=== PATIENT | male | born 1975 ===

== ENCOUNTER 2016-07-07 15:03 | Emergency (ER) | payer SELFPAY ==
[2016-07-07 15:03] VITALS: BMI 39.3
[2016-07-07 15:14] VITALS: PULSE 66; RESP 16; TEMP 97.7; O2SAT 100
--- NOTE | 2016-07-07 15:29 | ED PDOC ---
HPI:Nausea, Vomiting, Diarrhea Time Seen by Provider: 07/07/16 15:15 Chief Complaint (Nursing): GI Problem Chief Complaint (Provider): Vomiting History Per: Patient History/Exam Limitations: no limitations Onset/Duration Of Symptoms: Days (x3) Current Symptoms Are (Timing): Still Present Associated Symptoms: Fever (subjective, this morning), Diarrhea (3 days ago, none since). denies: Nausea, Urinary Symptoms (no dysuria/hematuria), Other ( no abdominal pain) Last Bowel Movement: Today (1 hour ago, normal) Additional Complaint(s): Marcus Walsh is a 40 year old male, with no pertinent past medical history, who presents to the ED on 07/07/16 for the evaluation of vomiting which he has experienced "all day" over the past 3 days. Associated subjective fever also reported as of this morning in addition to some diarrhea, which was only present day of symptom onset and has since resolved. Denies nausea, abdominal pain, dysuria or hematuria. Last bowel movement was as of 1 hour ago, reportedly normal. Of note, patient states that he has experienced a similar array of symptoms approximately 4 months ago, at which time he had been evaluated by a GI specialist via endoscopy; the results of which were reportedly normal. Unable to remember name of specialist. PMD: [place], [place] Past Medical History Reviewed: Historical Data, Nursing Documentation, Vital Signs Vital Signs: Last Vital Signs Temp 97.7 F 07/07/16 15:10 Pulse 66 07/07/16 15:10 Resp 16 07/07/16 15:10 BP 152/99 H 07/07/16 15:10 Pulse Ox 100 07/07/16 15:10 - Medical History PMH: No Chronic Diseases - Surgical History Surgical History: Endoscopy - Family History Family History: States: Hypertension - Social History Current smoker - smoking cessation education provided: Yes (light (<10 cigarettes/day)) Alcohol: None (patient denies on interview) Drugs: Cannabis - Home Medications Home Medications: Ambulatory Orders Medication Instructions Recorded Ondansetron ODT [Zofran ODT] 4 mg PO Q8H PRN #20 odt 07/07/16 - Allergies Allergies/Adverse Reactions: Allergies Allergy/AdvReac Type Severity Reaction Status Date / Time No Known Allergies Allergy Verified 07/07/16 15:10 Review of Systems ROS Statement: Except As Marked, All Systems Reviewed And Found Negative Constitutional: Positive for: Fever (subjective) Gastrointestinal: Positive for: Vomiting (multiple episodes, "liquid"), Diarrhea (3 days ago, since resolved). Negative for: Nausea, Abdominal Pain Genitourinary Male: Negative for: Dysuria, Hematuria Physical Exam - Reviewed Nursing Documentation Reviewed: Yes Vital Signs Reviewed: Yes - Physical Exam Appears: Positive for: Non-toxic, No Acute Distress Head Exam: Positive for: ATRAUMATIC, NORMOCEPHALIC Skin: Positive for: Normal Color, Warm, Dry ENT: Positive for: Normal ENT Inspection Cardiovascular/Chest: Positive for: Regular Rate, Rhythm. Negative for: Murmur Respiratory: Positive for: Normal Breath Sounds. Negative for: Respiratory Distress Gastrointestinal/Abdominal: Positive for: Normal Exam, Soft. Negative for: Tenderness, Mass, Guarding, Rebound Back: Positive for: Normal Inspection Neurologic/Psych: Positive for: Alert, Oriented - Laboratory Results Result Diagrams: 07/07/16 15:44 07/07/16 15:44 - ECG O2 Sat by Pulse Oximetry: 100 (RA) Pulse Ox Interpretation: Normal - Progress ED Course And Treament: Pt feels better, wants to go home. Explained to patient need for comprehensive examination for cause of cyclical vomiting. States he will follow-up with his PMD. Re-evaluation Time: 17:18 Condition: Improved Medical Decision Making Medical Decision Makin:15 Initial Impression: vomiting Differential diagnoses include but are not limited to gastritis, cholelithiasis/ cysitis Initial Plan: * Labs * Lipase * Udip * Urinalysis * IV NS 1000ml at 1000mls/hr * Pepcid 20mg IVP * Zofran 4mg IVP * Reevaluation Scribe Attestation: Documented by Sana Durham, acting as a scribe for Kelly Anderson MD. Provider Scribe Attestation: All medical record entries made by the Cindy were at my direction and personally dictated by me. I have reviewed the chart and agree that the record accurately reflects my personal performance of the history, physical exam, medical decision making, and the department course for this patient. I have also personally directed, reviewed, and agree with the discharge instructions and disposition. Disposition - Clinical Impression Clinical Impression: Vomiting in adult - Patient ED Disposition Is Patient to be Admitted: No - Disposition Disposition: Routine/Home Disposition Time: 17:18 Condition: IMPROVED Additional Instructions: FOLLOW-UP WITH YOUR STORE SHOPPER FOR REEVALUATION. Prescriptions: Ondansetron ODT [Zofran ODT] 4 mg PO Q8H PRN #20 odt PRN Reason: Nausea/Vomiting Instructions: Acute Nausea and Vomiting (ED)
[2016-07-07] MEDS: Sodium Chloride 0.9% 1,000 ML IV STA (15:39)
[2016-07-07 16:16] LABS: ALB/GLOB RATIO 1.2 (1.0-2.1); ALKALINE PHOSPHATASE 81 U/L (38-126); ALT/SGPT 29 U/L (21-72); AST/SGOT 24 U/L (17-59); BILIRUBIN,TOTAL 1.1 mg/dl (0.2-1.3); BLOOD UREA NITROGEN 11 mg/dl (9-20); CALCIUM 9.2 mg/dL (8.4-10.2); CARBON DIOXIDE 28 mmol/L (22-30); CHLORIDE 99 mmol/L (98-107); GFR AFRICAN-AMERICAN > 60; GLUCOSE,RANDOM 159 mg/dL (75-110); LIPASE 142 U/L (23-300); POTASSIUM 3.6 MMOL/L (3.6-5.0); SODIUM 144 mmol/l (132-148); TOTAL PROTEIN 7.5 G/DL (6.3-8.2)
[2016-07-07 16:27] LABS: BASO % 0.3 % (0.0-2.0); EOS % 0.3 % (0.0-4.0); HEMATOCRIT 51.3 % (35.0-51.0); LYMPH # 1.7 K/uL (1.0-4.3); LYMPH % 14.8 % (20.0-40.0); MEAN CELL VOLUME 92.4 fl (80.0-94.0); MEAN CORPUSCULAR HEMOGLOBIN 31.5 pg (27.0-31.0); MEAN CORPUSCULAR HGB CONC 34.1 g/dL (33.0-37.0); MEAN PLATELET VOLUME 8.4 fl (7.2-11.7); MONO # 0.5 K/uL (0.0-0.8); MONO % 4.4 % (0.0-10.0); NEUT # 9.2 K/uL (1.8-7.0); NEUT % 80.2 % (50.0-75.0); RED CELL DISTRIBUTION WIDTH 13.2 % (11.5-14.5); WHITE BLOOD COUNT 11.5 K/uL (4.8-10.8)
[2016-07-07 17:33] VITALS: BP 148/87
[2016-07-07 18:33] LABS: RBC URINE 2 /hpf (0-3); URINE BACTERIA RARE (<OCC); URINE BILIRUBIN NEGATIVE (NEGATIVE); URINE BLOOD NEGATIVE (NEGATIVE); URINE COLOR YELLOW (YELLOW); URINE GLUCOSE (UA) NEG (Normal); URINE KETONE 20 mg/dL (NEGATIVE); URINE LEUKOCYTE ESTERASE NEG Leu/uL (Negative); URINE PROTEIN 30 mg/dL (NEGATIVE); WBC URINE 1 /hpf (0-5)
== END 2016-07-07 17:32 | disposition home or self-care (01) ==
LOC: H.ER 15:03
DX: R11.2 Nausea with vomiting, unspecified (principal); R19.7 Diarrhea, unspecified; F17.210 Nicotine dependence, cigarettes, uncomplicated
CPT/HCPCS: 80053; 81003; 83690; 85025; 96361; 96374; 96375; 99283; J2405; J7040

== ENCOUNTER 2017-05-07 00:23 | Emergency (ER) | payer SELFPAY ==
[2017-05-07 00:23] VITALS: BMI 39.3
[2017-05-07 00:53] VITALS: BP 186/108; PULSE 93; RESP 18; TEMP 99.6; O2SAT 98
[2017-05-07] MEDS ORDERED: Sodium Chloride 0.9% 1,000 ML IV STA (01:11)
[2017-05-07] MEDS ORDERED: Lactated Ringer's 1,000 ML IV SCH (01:30)
[2017-05-07 01:34] LABS: BASO % 0.2 % (0.0-2.0); EOS % 0.1 % (0.0-4.0); HEMOGLOBIN 17.8 g/dL (12.0-18.0); LYMPH # 1.4 K/uL (1.0-4.3); LYMPH % 9.3 % (20.0-40.0); MEAN CELL VOLUME 90.8 fl (80.0-94.0); MEAN CORPUSCULAR HGB CONC 34.2 g/dL (33.0-37.0); MEAN PLATELET VOLUME 8.2 fl (7.2-11.7); MONO # 0.5 K/uL (0.0-0.8); NEUT # 13.4 K/uL (1.8-7.0); NEUT % 87.4 % (50.0-75.0); NRBC % 0.1 % (0.0-0.0); PLATELET COUNT 250 K/uL (130-400); RBC 5.75 Mil/uL (4.40-5.90); RED CELL DISTRIBUTION WIDTH 12.9 % (11.5-14.5); WHITE BLOOD COUNT 15.3 K/uL (4.8-10.8)
[2017-05-07 01:39] LABS: ALB/GLOB RATIO 1.3 (1.0-2.1); ALBUMIN 4.8 g/dL (3.5-5.0); ALT/SGPT 38 U/L (21-72); AST/SGOT 26 U/L (17-59); BLOOD UREA NITROGEN 11 mg/dl (9-20); CALCIUM 9.7 mg/dL (8.4-10.2); GFR AFRICAN-AMERICAN > 60; GFR NON-AFRICAN AMERICAN > 60; LIPASE 199 U/L (23-300)
--- NOTE | 2017-05-07 02:07 | ED PDOC ---
HPI:Nausea, Vomiting, Diarrhea Time Seen by Provider: 05/07/17 00:57 Chief Complaint (Nursing): GI Problem Chief Complaint (Provider): Vomiting History Per: Patient History/Exam Limitations: no limitations Onset/Duration Of Symptoms: Days (x2) Current Symptoms Are (Timing): Still Present Additional Complaint(s): 41 year old male presents to ED with persistent vomiting x2 days and has a history of cyclical vomiting. States he has vomited "more times than he can count" today (non-bloody, non-bilious). (-) abdominal pain, fever, or abnormal bowel movements. Patient requests Zofran and IV fluids as he feels dehydrated. PCP: [facility] Past Medical History Reviewed: Historical Data, Nursing Documentation, Vital Signs Vital Signs: Last Vital Signs Temp 99.6 F 05/07/17 00:51 Pulse 93 H 05/07/17 00:51 Resp 18 05/07/17 00:51 BP 186/108 H 05/07/17 00:51 Pulse Ox 98 05/07/17 00:51 - Medical History PMH: HTN - Surgical History Surgical History: Endoscopy - Family History Family History: States: Hypertension - Living Arrangements Living Arrangements: With Family - Home Medications Home Medications: Ambulatory Orders Medication Instructions Recorded Ondansetron ODT [Zofran ODT] 4 mg PO Q8H PRN #20 odt 07/07/16 hydroCHLOROthiazide [Hydrodiuril] 25 mg PO DAILY #30 tab 05/07/17 - Allergies Allergies/Adverse Reactions: Allergies Allergy/AdvReac Type Severity Reaction Status Date / Time No Known Allergies Allergy Verified 05/07/17 00:51 Review of Systems ROS Statement: Except As Marked, All Systems Reviewed And Found Negative Constitutional: Negative for: Fever Gastrointestinal: Positive for: Vomiting. Negative for: Abdominal Pain, Diarrhea, Constipation Physical Exam - Reviewed Nursing Documentation Reviewed: Yes Vital Signs Reviewed: Yes - Physical Exam Appears: Positive for: Non-toxic, No Acute Distress Skin: Positive for: Normal Color, Warm, Dry Eye Exam: Positive for: Normal appearance, EOMI, PERRL ENT: Positive for: Normal ENT Inspection Neck: Positive for: Normal, Painless ROM, Supple Cardiovascular/Chest: Positive for: Regular Rate, Rhythm. Negative for: Murmur Respiratory: Positive for: Normal Breath Sounds. Negative for: Respiratory Distress Gastrointestinal/Abdominal: Positive for: Normal Exam, Soft. Negative for: Tenderness Neurologic/Psych: Positive for: Alert, Oriented. Negative for: Motor/Sensory Deficits - Laboratory Results Result Diagrams: 05/07/17 01:27 05/07/17 01:27 - ECG O2 Sat by Pulse Oximetry: 98 (RA) Pulse Ox Interpretation: Normal Medical Decision Making Medical Decision Makin Initial impression: exacerbation of cyclical vomiting syndrome Initial plan: * Labs * Lipase * Lactated Ringers IV * NS IV * Zofran Inj 4mg IVP * Re-eval Of note, patient has had work-up in past for the same condition. 0424 Upon re-evaluation, patient's blood pressure is elevated and is tolerating PO. Patient is stable for discharge home and was advised to take hydrochlorothiazide. Provider also advised patient to follow up with PCP within next 2 days. Return precautions given. Scribe Attestation: Documented by Palmira Jennings acting as a scribe for Zhao Oneal MD. Scribe Attestation: All medical record entries made by the Scribe were at my direction and personally dictated by me. I have reviewed the chart and agree that the record accurately reflects my personal performance of the history, physical exam, medical decision making, and the department course for this patient. I have also personally directed, reviewed, and agree with the discharge instructions and disposition. Disposition - Clinical Impression Clinical Impression: Vomiting - Disposition Referrals: [facility] [Outside] Disposition: Routine/Home Disposition Time: 04:24 Condition: STABLE Additional Instructions: Please followup in the clinic regarding your hypertension. Start taking HCTZ daily. Prescriptions: hydroCHLOROthiazide [Hydrodiuril] 25 mg PO DAILY #30 tab Instructions: Nausea and Vomiting, Adult (DC) Forms: [employer] (Malay)
[2017-05-07 04:15] LABS: BANDS 2 % (0-2); LYMPHOCYTE 9 % (20-50); MONOCYTE 1 % (0-10); NEUTROPHIL 86 % (42-75); PLATELET ESTIMATE NORMAL (NORMAL); REACTIVE LYMPHOCYTES 2 % (0-0); TOTAL CELLS COUNTED 100
== END 2017-05-07 04:30 | disposition home or self-care (01) ==
LOC: H.ER 00:23
DX: R11.10 Vomiting, unspecified (principal); I10 Essential (primary) hypertension
CPT/HCPCS: 80053; 83690; 85025; 96361; 96374; 96375; 99282; J1885; J2405; J7120